=== PATIENT | male | born 1950 | race Caucasian/White ===

== ENCOUNTER → 2021-11-06 | Day surgery (SDC) | payer MEDICARE, OTHER ==
[~2021-11-06] MED LIST: ALLEGRA-D 24 H1 EACH PO; ASPIRIN81 M1; BUSPAR5 MG; CARVEDILOL6.25 MG; CENTRUM ADULTS1 EACH PO; CRESTOR10 MG PO; CRESTOR40 MG; FINASTERIDE5 MG PO; IV IG IV; LEXAPRO10 MG PO; MESTINON60 MG PO; MIDAZOLAM HCL 2 MG/2 ML VIAL ONE; MYCOPHENOLATE500 MG PO; NASONEX17 GM; OMEGA 3 1,0001 EACH PO; OXYBUTYNIN CHLOR5 M1 PO; POVIDONE IODINE 0.05% 0.05 % ML PO ONE; PREVACID30 MG; PROPOFOL IV EMULSION 10 MG/ML 20 ML VIAL ONE; TRILIPIX135 MG; ZYRTEC10 MG
[2021-11-06 12:22] VITALS: BP 120/75
== END | disposition home or self-care (01) ==
LOC: OR 09:00
PROVIDERS: ATTEND Internal Medicine Gastroenterology
DX: Z12.11 Encounter for screening for malignant neoplasm of colon (principal); R19.7 Diarrhea, unspecified; K57.30 Diverticulosis of large intestine without perforation or abscess without bleeding; R10.9 Unspecified abdominal pain; R14.0 Abdominal distension (gaseous); K21.9 Gastro-esophageal reflux disease without esophagitis; D64.9 Anemia, unspecified; G70.00 Myasthenia gravis without (acute) exacerbation; I25.810 Atherosclerosis of coronary artery bypass graft(s) without angina pectoris; I10 Essential (primary) hypertension; E78.5 Hyperlipidemia, unspecified; I25.2 Old myocardial infarction; Z88.2 Allergy status to sulfonamides; Z01.812 Encounter for preprocedural laboratory examination; Z20.822 Contact with and (suspected) exposure to COVID-19; Z79.82 Long term (current) use of aspirin; Z79.899 Other long term (current) drug therapy; Z95.1 Presence of aortocoronary bypass graft; Z85.89 Personal history of malignant neoplasm of other organs and systems; Z80.0 Family history of malignant neoplasm of digestive organs
CPT/HCPCS: 45380; 88305; J2250; J2704; U0002